=== PATIENT | male | born 1985 | race Caucasian/White ===

== ENCOUNTER 2018-09-20 11:47 | Emergency (ER) | payer OTHER ==
[~2018-09-20] VITALS: Ht 175.3 cm; Wt 110.0 kg
[2018-09-20 11:50] VITALS: BP 146/83
[2018-09-20] MEDS ORDERED: LIDOCAINE-MPF 1%, 5ML INFIL ONE (12:30)
[2018-09-20] MEDS ORDERED: LIDOCAINE-MPF 1%, 5ML ONE (13:26)
--- NOTE | 2018-09-20 13:29 | NUR ---
PT HAS A SMALL LAC TO THE TIP OF HIS 5TH FINGER ON HIS LEFT HAND. +CMS. PT IS ALERT, ORIENTED, WITH NAD. FAMILY AT BEDSIDE.
[2018-09-20] MEDS ORDERED: BACITRACIN ZINC OINT 500U/GM, 0.9 GM ONE (14:46)
--- NOTE | 2018-09-20 15:38 | NUR ---
Patient given discharge instructions and they have confirmed that they understand the instructions. Patient ambulatory with steady gait.
== END 2018-09-20 15:40 | disposition home or self-care (01) ==
LOC: ED 13:17
DX: S61.217A Laceration without foreign body of left little finger without damage to nail, initial encounter (principal); W45.8XXA Other foreign body or object entering through skin, initial encounter; Y93.89 Activity, other specified; Y92.009 Unspecified place in unspecified non-institutional (private) residence as the place of occurrence of the external cause; Y99.8 Other external cause status
CPT/HCPCS: 12041; 99284